=== PATIENT | female | born 1990 | race Caucasian/White ===

== ENCOUNTER 2021-02-20 08:25 | Outpatient (RCR) | payer OTHER, SELFPAY ==
[2021-02-20] MEDS: RHO(D) IMMUNE GLOBULIN 300 MCG/2 ML SYRINGE IM (17:53)
== END 2021-02-20 08:30 | disposition home or self-care (01) ==
LOC: ANHLAB 08:25
PROVIDERS: PCP Family Medicine; Visit Provider Obstetrics & Gynecology
DX: Z29.13 Encounter for prophylactic Rho(D) immune globulin (principal); O36.0190 Maternal care for anti-D [Rh] antibodies, unspecified trimester, not applicable or unspecified; Z3A.00 Weeks of gestation of pregnancy not specified
CPT/HCPCS: 36415; 85461; 90384; 96372; J2790

== ENCOUNTER 2021-04-17 05:09 | Inpatient (IN) | payer OTHER, SELFPAY ==
[2021-04-17] VITALS (91 sets, daily range): BP systolic 67–127; BP diastolic 41–101; PULSE 66–290; RESP 20; TEMP 36.6–37.2; O2SAT 97–100; BMI 33.9
--- NOTE | 2021-04-17 05:36 | P.HP_ITS ---
H&P: HPI History of Present Illness Date/Time: 04/17/21 05:36 31-year-old 2 para 1 last menstrual period was 07/20/2020, EDC is 04/24/2021, presents at 39 weeks gestation for induction of labor. Her cervix was favorable. She had abnormal diabetic screen but her 3hour GTT was normal. Her cervix is favorable and risks and benefits reviewed Chief Complaint: medical induction of labor at term Review of Systems 2 Review of Systems: All systems reviewed & are unremarkable except as noted in HPI and below PMFSH Family History Family History Grandparent Hypertension Mother Hypertension Social History Social History Substance use: never Spiritual care concerns: No Meds Home Medications and Allergies Allergies Allergy/AdvReac Type Severity Reaction Status Date / Time No Known Allergies Allergy Unverified 04/14/18 13:46 Exam Const: General: no acute distress Eyes: General: appearance normal, both eyes and all related structures Neck: Neck: supple and no JVD Thyroid: thyroid normal Resp: Effort & Inspection: normal respiratory effort Auscultation: clear to auscultation bilaterally Cardio: Rate: regular rate Rhythm: regular rhythm GI: Inspection: non-distended GI Palp: Yes Soft to palpation, No Tenderness to palpation present (GI) and No Guarding due to palpation present (GI) Auscultation: normal bowel sounds : External Female Exam: normal external appearance Speculum Exam - Vagina: normal appearance of the vagina Speculum Exam - Cervix: normal appearance of the cervix ( cervix 3/ 50/-2. AROM clear. FHTs reassuring) Skin: General skin exam: no rashes or lesions noted Extrem: General: normal to inspection and no edema Psych: Mental Status: mental status grossly normal Affect: normal affect Assessment and Plan Additional Plan impression: Term with favorable cervix Plan: Medical induction of labor. Spontaneous vaginal delivery is expected. She has an epidural candidate
[2021-04-17] MEDS: LACTATED RINGERS 1,000 ML 125 ML IV CONT ×2 (05:58→09:24)
[2021-04-17] MEDS: OXYTOCIN 30 UNITS/NS 500 ML 30 UNITS/500 ML BAG IV CONT (05:59)
[2021-04-17 06:17] LABS: Basophils Percent Auto 0.2 % (0.2-1.2); Eosinophils Absolute Auto 0.2 K/mm3 (0-0.3); Eosinophils Percent Auto 2.4 % (0-4.4); Immature Granulocyte Absolute 0.05 K/mm3 (0.00-0.031); Immature Granulocyte Percent A 0.6 % (0-0.5); Lymphocytes Absolute Auto 1.88 K/mm3 (0.9-3.2); Lymphocytes Percent Auto 22.9 % (18.3-44.2); Mean Corpuscular HGB Conc 33.3 g/dl (32-36); Mean Corpuscular Hemoglobin 29.1 pg (26-34); Mean Corpuscular Volume 87.4 fl (80-100); Mean Platelet Volume 11.5 fl (7.4-10.4); Monocytes Absolute Auto 0.6 K/mm3 (0.1-0.6); Monocytes Percent Auto 7.1 % (2.6-8.5); Neutrophils Absolute Auto 5.5 K/mm3 (1.3-6.7); Neutrophils Percent Auto 66.8 % (45.5-73.1); Platelet Count Result 182 k/mm3 (150-375); Red Blood Count 4.12 M/mm3 (4.2-5.4); Red Cell Distribution Width 13.2 % (11.5-14.5); White Blood Count 8.2 K/mm3 (4.5-10.0)
--- NOTE | 2021-04-17 06:18 | LDADM ---
This patient, Larissa Ray, was admitted to Labor/Delivery/Recovery 104 on 04/17/21 at 05:09. Plans for labor, pain management and were discussed with patient. Patient/family oriented to hospital policies and general routines including ID bracelet, bed and alarms, visiting hours, pain management, procedures, bathroom and other care routines, personal items, smoking policy, room service/diet and guest tray routines, infant security routines, and visiting hours. Patient/Family are encouraged to report perceived risks to care and to ask questions if they do not understand what they are told or what they should do. See OBIX for further documentation.
--- NOTE | 2021-04-17 07:47 | P.PNAN_ITS ---
Anes - Eval Pre Procedure Date/Time: 04/17/21 07:47 Pre Op Diagnosis: IOL Patient Data Age: 31 Gender: F Height: 1.68 m Weight: 95.3 kg Allergies Allergy/AdvReac Type Severity Reaction Status Date / Time No Known Allergies Allergy Unverified 04/14/18 13:46 Home Medications Medication Instructions Recorded Confirmed Type Nena 04/17/21 History Singulair 04/17/21 History albuterol sulfate INHALATION 04/17/21 History fluticasone propionate [Flovent INHALATION 04/17/21 History Diskus] Laboratory Tests 04/17/21 04/17/21 04/17/21 06:03 06:03 06:03 WBC 8.2 K/mm3 K/mm3 (4.5-10.0) RBC 4.12 M/mm3 L M/mm3 (4.2-5.4) Hgb 12.0 g/dL g/dL (12.0-15.0) Hct 36.0 % L % (37.0-47.0) MCV 87.4 fl fl (80-100) MCH 29.1 pg pg (26-34) MCHC 33.3 g/dl g/dl (32-36) RDW 13.2 % % (11.5-14.5) Plt Count 182 k/mm3 k/mm3 (150-375) MPV 11.5 fl H fl (7.4-10.4) Immature Gran % (Auto) 0.6 % H % (0-0.5) Neut % (Auto) 66.8 % % (45.5-73.1) Lymph % (Auto) 22.9 % % (18.3-44.2) Dade % (Auto) 7.1 % % (2.6-8.5) Eos % (Auto) 2.4 % % (0-4.4) Baso % (Auto) 0.2 % % (0.2-1.2) Lymph # (Auto) 1.88 K/mm3 K/mm3 (0.9-3.2) [place] # (Auto) 0.6 K/mm3 K/mm3 (0.1-0.6) Eos # (Auto) 0.2 K/mm3 K/mm3 (0-0.3) Baso # (Auto) 0.0 K/mm3 K/mm3 (0.0-0.1) Abs Immat Gran (auto) 0.05 K/mm3 H K/mm3 (0.00-0.031) Absolute Neuts (auto) 5.5 K/mm3 K/mm3 (1.3-6.7) Absolute Nucleated RBC 0.0 K/mm3 K/mm3 (0.0-0.012) Nucleated RBC % 0.0 % % (0.0-0.2) RPR Pending Blood Type A Negative Antibody Screen Positive Antibody Identification Pending Antigen Identification Pending EMELY, IgG Interpret Pending EMELY, Poly Interpret Pending EMELY, Complement Interp Pending Patient hx anesthesia problems: none Family hx anesthesia problems: none Results Review: All pre-operative results and documents have been reviewed as part of the pre-operative evaluation. [facility] Family History Family History Grandparent Hypertension Mother Hypertension Social History Social History Smoking status: Never smoker Second hand tobacco smoke exposure: No Substance use: never Spiritual care concerns: No Exam Day of Procedure 04/17/21 07:47 Patient weight: obese Heart: regular rate and rhythm Lungs: normal air movement Airway: Mallampati scale Neurological: alert and oriented
--- NOTE | 2021-04-17 10:29 | PM.OBPNLAB ---
Pain Control Date/time seen: 04/17/21 10:29 Pain control: tolerating well and epidural Pelvic Exam Dilation (cm): 3 station: -1 Amniotic membrane status: Ruptured Contractions Monitor mode: External
--- NOTE | 2021-04-17 14:41 | PM.OBPRVD ---
OB - Delivery Note Procedure Delivery date: 04/17/21 Procedure: mil Intrapartal events: None Induction method: AROM Delivery augmentation: pitocin Delivery monitor: external FHT and internal uterine Route of delivery: Episiotomy description: None Laceration Description: None Specimen: No Quantitative Blood Loss (ml): 59 Anesthesia type: Epidural Disposition: floor Baby Date of : 04/17/21 Time of : 14:29 Weeks of gestation at delivery: 39 gender: Male Weight (pounds): 7 Weight (ounces): 2 presentation: vertex position: Right Occiput Anterior Placenta delivery description: Spontaneous cord vessel description: 3 Vessels, Nuchal Cord, Loose and Around Body x1 score one minute: 8 score five minutes: 9
[2021-04-17] MEDS: OXYTOCIN 30 UNITS/NS 500 ML 30 UNITS/500 ML BAG 125 UNITS IV CONT (15:08)
[2021-04-17] MEDS: BENZOCAINE 20% AER SPR (*SP) 56 GM CAN 1 SPRAY TOPICAL (17:16)
[2021-04-17] MEDS: WITCH HAZEL 40 PADS 1 PAD TOPICAL (17:16)
--- NOTE | 2021-04-17 17:22 | OBPPTRN ---
Patient transferred to post room #279 via wheelchair. Support person present. Oriented to unit, room, information board, rooming in, admission packet and security measures. Patient verbalizes understanding.
[2021-04-17] MEDS: IBUPROFEN 600 MG TABLET PO (17:25)
[2021-04-18] MEDS: IBUPROFEN 600 MG TABLET PO ×2 (03:28→11:01)
[2021-04-18 05:11] LABS: Hemoglobin 11.5 g/dL (12.0-15.0)
[2021-04-18] MEDS: WITCH HAZEL 40 PADS 1 PAD TOPICAL (07:20)
--- NOTE | 2021-04-18 07:26 | PM.DS ---
DS: Admitting Diagnosis Discharge Date 04/18/2021 Admitting Diagnosis Term with favorable cervix DS: Summary Hospital Course Hospital Course: Patient was heard admitted for induction of labor 04/17/2021. She underwent spontaneous vaginal delivery. Baby was circumcised on day 1. She remained afebrile. She was up, voiding without difficulty, ambulating, generally without complaints. Time Spent with Patient Time attestation: Total time spent providing and/or coordinating discharge services: Exam Const: General: no acute distress Eyes: General: appearance normal, both eyes and all related structures Neck: Neck: supple and no JVD Thyroid: thyroid normal Resp: Effort & Inspection: normal respiratory effort Auscultation: clear to auscultation bilaterally Cardio: Rate: regular rate Rhythm: regular rhythm GI: Inspection: non-distended GI Palp: Yes Soft to palpation, No Tenderness to palpation present (GI) and No Guarding due to palpation present (GI) Auscultation: normal bowel sounds : General: Yes bladder normal to palpation External Female Exam: normal external appearance Speculum Exam - Vagina: normal vaginal discharge and No vaginal bleeding Speculum Exam - Cervix: nontender Bimanual exam- vagina & uterus: bladder normal to palpation and No Cervical tenderness present OB/external & speculum: No vaginal bleeding Skin: General skin exam: no rashes or lesions noted Extrem: General: normal to inspection and no edema Psych: Mental Status: mental status grossly normal Affect: normal affect DS: Data Data Completed and Pending Labs on day of discharge: Labs from last 24 hours 04/18/21 04/18/21 04/17/21 03:15 03:15 06:03 Hgb 11.5 L Hct 34.0 L Blood Type A Negative A Negative Antibody Screen TNP Positive Antibody Identification Inconclusive Antigen Identification Cancelled EMELY, IgG Interpret Not Performed EMELY, Poly Interpret Negative EMELY, Complement Interp Not Performed Screen Negative Baby's Blood Type B pos Baby's EMELY Negative Doses of RhIg Required 1 Discharge Plan Discharge Attending physician on discharge: Jamarcus Butcher Discharging Clinician: Jamarcus Butcher Patient Disposition: Home, Self-Care Activity: may shower, no straining and pelvic rest Diet: heart healthy Wound Care Instructions: follow printed instructions Patient Instructions: Antibiotic Form Stand Alone Forms: General Discharge Information Follow-up/Referrals: Jamarcus Butcher MD [Physician] - Discharge Medications: Continued Nena RF: 0 Flovent Diskus 100 mcg/actuation blister with device INHALATION RF: 0 albuterol sulfate 90 mcg/actuation HFA aerosol inhaler INHALATION RF: 0 Singulair RF: 0 Date of admission: 04/17/21 05:09 Primary Care Provider: Roselyn,Darrell Ferguson Admitting Provider: Jamarcus Butcher Attending physician on admission: Jamarcus Butcher Condition: Stable
--- NOTE | 2021-04-18 08:00 | PC.NURSE ---
0750 -Introductions were made and mother led the discussion of her desires and plans to feed her baby. Mother states baby is latching well and sometimes she has minimal nipple soreness. She voiced understanding of detaching and having nipple butter . Reviewed handwashing to prevent infection before and after taking care of her baby and any type of nipple care. Suggested positioning, optimal latching and wet, warm compress to her nipple and let air dry. Mother verbalizes she is able to independently latch . Discussed how to watch for early feeding cues, place skin to skin, then feeding baby when is ready or every 2-3 hours. Reviewed effective latching with resources visual handout/mom and baby guide. Mother has verbalized understanding watching for feeding cues for responsive feeding or how to stimulate infant to initiate feeding infant when she sees feeding cues, 8-12 times in 24 hours approximately every 2-3 hours from the start of the last feeding or she has discomfort with nursing. Mother plans to go home today and will call out for an assessment of latching and positioning. Reported to primary RN.
[2021-04-18 09:25] LABS: Rapid Plasma Reagin Non-Reactive (NonReactive)
[2021-04-18 10:17] VITALS: BP 109/77; PULSE 70; RESP 20; TEMP 36.9
[2021-04-18] MEDS: RHO(D) IMMUNE GLOBULIN 300 MCG/2 ML SYRINGE IM (10:56)
[2021-04-18] MEDS: DOCUSATE SODIUM 100 MG CAPSULE PO (11:01)
[2021-04-18] MEDS: MULTIVIT/MIN/PREN/FOL AC/IRON TABLET 1 TAB PO (11:01)
[2021-04-18 12:06] VITALS: BP 107/64; PULSE 74; RESP 18; TEMP 36.6; O2SAT 97
[2021-04-21 10:55] VITALS: BP 122/72; PULSE 91; RESP 16; TEMP 36.9; O2SAT 97
== END 2021-04-18 16:33 | disposition home or self-care (01) | DRG 807 ==
LOC: ANHLDR 05:16 → ANHOB2 17:55
PROVIDERS: Admitting Provider Obstetrics & Gynecology; PCP Family Medicine; Visit Provider Obstetrics & Gynecology
DX: O69.81X0 Labor and delivery complicated by cord around neck, without compression, not applicable or unspecified (principal); Z37.0 Single live birth; Z3A.39 39 weeks gestation of pregnancy
CPT/HCPCS: 36415; 85014; 85018; 85025; 85461; 86592; 86850; 86880; 86900; 86901; 86902; 90384; A9270; J2590; J2790; J2795; J7120